=== PATIENT | female | born 1940 | race Caucasian/White ===

== ENCOUNTER → 2016-10-28 | Outpatient (CLI) | payer MEDICARE, BC | END | disposition home or self-care (01) | LOC: RAD.S 08:50 | DX: Z12.31 Encounter for screening mammogram for malignant neoplasm of breast (principal) ==

== ENCOUNTER 2016-11-06 06:16 | Day surgery (SDC) | payer MEDICARE, BC ==
[~2016-11-06] VITALS: Ht 160 cm; Wt 85.0 kg
--- NOTE | 2016-11-07 07:55 | OR ---
ADMIT: 11/06/2016 RM/LOC: [facility] MR#: [id number] [address] [id number] LUCIE FERNANDEZTAYE Marino [address] [place] [address] Operative/Delivery Room Report SEX: F AGE: 76 : 1940 SURGERY DATE: 11/06/2016 SURGEON: Timoteo Schmitt MD PROCEDURE: Screening colonoscopy. PREOPERATIVE DIAGNOSIS: Screening colonoscopy. POSTOPERATIVE DIAGNOSES: Colon polyps, left-sided diverticulosis. DESCRIPTION OF PROCEDURE: The patient was brought to the procedure room, placed in left lateral decubitus position. Informed consent had been obtained preoperatively. The risks and benefits including, but not limited to, perforation, sedation, bleeding were discussed with the patient and agreed upon. All questions were answered, alternatives discussed, the patient agreed. TIVA was provided by the EMERGENCY MANAGEMENT SPECIALIST with fentanyl and propofol. Anal inspection, digital examination revealed no abnormalities or obstructing masses. Olympus videoendoscope, model CF-H180Al was inserted through the rectum and advanced to the cecum without difficulty. The appendiceal orifice and ileocecal valve were identified. The scope was withdrawn through a normal cecum in the distal ascending colon where there was a polyp that was injected with 1:10,000 epinephrine, biopsied, cauterized, and retrieved. Additional polyp was removed in a similar fashion in the transverse colon. In the descending and sigmoid, there were diverticula present. On initial passage of the scope through the sigmoid, the polyp was identified, but multiple attempts reidentify this polyp were unsuccessful due to the spasm and the diverticula that were present. Multiple attempts were made including positional change, however, this polyp could not be found. Rectum appeared normal. Scope was retroflexed. The anal verge appeared normal. The patient tolerated the procedure well. No complications were expected. We will have her hold her Plavix for an additional five days and recommend she have repeat colonoscopy in 1 year due to the number of polyps, and the sigmoid polyp that could not be removed at this time. If she has any postoperative problems, she will contact me. Timoteo Schmitt MD/ honey JOB #: [id number] CC: Timoteo Schmitt, Attending Physician Marylin Duong, Family Physician Marylin Duong MD
== END 2016-11-06 09:32 | disposition home or self-care (01) ==
LOC: SSS 06:16
PROC: 0DBK8ZX Excision of Ascending Colon, Via Natural or Artificial Opening Endoscopic, Diagnostic (ICD-10-PCS; principal; 2016-11-06)
PROC: 0DBL8ZX Excision of Transverse Colon, Via Natural or Artificial Opening Endoscopic, Diagnostic (ICD-10-PCS; principal; 2016-11-06)
DX: Z12.11 Encounter for screening for malignant neoplasm of colon (principal); D12.2 Benign neoplasm of ascending colon; K63.5 Polyp of colon; K57.30 Diverticulosis of large intestine without perforation or abscess without bleeding; I10 Essential (primary) hypertension; E03.9 Hypothyroidism, unspecified; E78.5 Hyperlipidemia, unspecified; K21.9 Gastro-esophageal reflux disease without esophagitis; Z90.49 Acquired absence of other specified parts of digestive tract; M81.0 Age-related osteoporosis without current pathological fracture; Z98.890 Other specified postprocedural states; Z96.653 Presence of artificial knee joint, bilateral; Z88.0 Allergy status to penicillin; Z88.6 Allergy status to analgesic agent; Z88.8 Allergy status to other drugs, medicaments and biological substances; Z79.899 Other long term (current) drug therapy; G47.33 Obstructive sleep apnea (adult) (pediatric); Z90.710 Acquired absence of both cervix and uterus